=== PATIENT | male | born 1935 | race Caucasian/White ===

== ENCOUNTER 2018-10-21 09:37 | Outpatient (CLI) | payer MEDICARE | END 2018-10-21 23:59 | disposition home or self-care (01) | LOC: RAD 09:37 | PROVIDERS: ATTEND Specialist | DX: R05 Cough (principal) | CPT/HCPCS: 71045-TC ==

== ENCOUNTER 2018-11-11 08:50 | Outpatient (CLI) | payer MEDICARE | END 2018-11-11 23:59 | disposition home health service (06) | LOC: WOU 08:50 | PROVIDERS: ATTEND Specialist | DX: E11.621 Type 2 diabetes mellitus with foot ulcer (principal); L97.526 Non-pressure chronic ulcer of other part of left foot with bone involvement without evidence of necrosis; E11.69 Type 2 diabetes mellitus with other specified complication; M86.372 Chronic multifocal osteomyelitis, left ankle and foot; I10 Essential (primary) hypertension; E03.9 Hypothyroidism, unspecified; Z86.73 Personal history of transient ischemic attack (TIA), and cerebral infarction without residual deficits; Z79.01 Long term (current) use of anticoagulants | CPT/HCPCS: 11043 ==

== ENCOUNTER 2018-11-18 08:55 | Outpatient (CLI) | payer MEDICARE ==
[2018-11-19] MEDS ORDERED: FAMO40TA7 PO (10:34)
[2018-11-19] MEDS ORDERED: PREG50CA PO (10:34)
[2018-11-19] MEDS ORDERED: LEVO88TA5 PO (10:34)
[2018-11-19] MEDS ORDERED: PANT40TA4 PO (10:34)
[2018-11-19] MEDS ORDERED: FURO20TA4 PO (10:34)
[2018-11-19] MEDS ORDERED: GABA-534 PO (10:34)
[2018-11-19] MEDS ORDERED: ATOR40TA PO (10:34)
[2018-11-19] MEDS ORDERED: APIX5TAB PO (10:34)
== END 2018-11-18 23:59 | disposition home health service (06) ==
LOC: WOU 08:55
PROVIDERS: ATTEND Specialist
DX: E11.621 Type 2 diabetes mellitus with foot ulcer (principal); L97.523 Non-pressure chronic ulcer of other part of left foot with necrosis of muscle; E11.69 Type 2 diabetes mellitus with other specified complication; M86.372 Chronic multifocal osteomyelitis, left ankle and foot; I10 Essential (primary) hypertension; E03.9 Hypothyroidism, unspecified; Z86.73 Personal history of transient ischemic attack (TIA), and cerebral infarction without residual deficits; Z79.01 Long term (current) use of anticoagulants; Z79.4 Long term (current) use of insulin
CPT/HCPCS: 11042

== ENCOUNTER 2018-11-19 09:42 | Emergency (ER) | payer MEDICARE ==
[~2018-11-19] VITALS: Ht 177.8 cm; Wt 86.2 kg
--- NOTE | 2018-11-19 09:51 | NUR ---
PT BIBA RA 82 From Home Weak/Fall shoulder pain "Was brushing teeth this am [place] weak-fell and hurt R shoulder" PT IS AAOX3, NOT IN RESPIRATORY DISTRESS, HOOKED TO MONITOR, KEPT RESTED AND COMFORTABLE, WILL CONTINUE TO MONITOR.
--- NOTE | 2018-11-19 09:52 | NUR ---
AT BEDSIDE FOR EVAL.
--- NOTE | 2018-11-19 09:53 | NUR ---
IV LINE ESTABLISHED, BLOOD DRAWN AND SENT TO LAB.
[2018-11-19] MEDS ORDERED: ACETAMINOPHEN ES 500 MG TABLET PO ONE (10:00)
--- NOTE | 2018-11-19 10:06 | NUR ---
URINAL GIVEN UNABLE TO PROVIDE URINE SPECIMEN THIS TIME.
[2018-11-19] MEDS ORDERED: ACETAMINOPHEN ES 500 MG TABLET ONE (10:07)
[2018-11-19 10:15] LABS: BASOPHILS # (AUTO) 0.1 /CMM (0.0-0.2); BASOPHILS % (AUTO) 0.8 % (0.0-2.0); EOSINOPHILS % (AUTO) 0.6 % (0.0-6.0); HEMATOCRIT 38 % (39-51); HEMOGLOBIN 13.2 g/dL (13.5-17.5); LYMPHOCYTES # (AUTO) 1.6 /CMM (0.8-4.8); LYMPHOCYTES % (AUTO) 23.7 % (20.0-44.0); MEAN CORPUSCULAR HGB CONC 35 g/dl (31.0-36.0); MEAN CORPUSCULAR VOLUME 92 fL (80-96); MONOCYTES # (AUTO) 0.7 /CMM (0.1-1.30); NEUTROPHILS # (AUTO) 4.3 /CMM (1.8-8.9); NEUTROPHILS % (AUTO) 64.9 % (43.0-81.0); PLATELET COUNT (AUTO) 172 /CMM (150-450); RED BLOOD CELL COUNT(AUTO) 4.17 MIL/uL (4.5-6.0); WHITE BLOOD COUNT (AUTO) 6.6 K/uL (4.3-11.0)
[2018-11-19 10:23] LABS: CALCIUM, SERUM 8.9 mg/dL (8.5-10.1); CREATININE 1.3 mg/dL (0.6-1.3); POTASSIUM 3.9 mmol/L (3.5-5.1)
--- NOTE | 2018-11-19 10:33 | NUR ---
ASSOCIATE MEDIA PLANNER AT [facility] FOR XRAY
[2018-11-19] MEDS ORDERED: FAMO40TA7 PO (10:34)
[2018-11-19] MEDS ORDERED: FURO20TA4 PO (10:34)
[2018-11-19] MEDS ORDERED: ATOR40TA PO (10:34)
[2018-11-19] MEDS ORDERED: PREG50CA PO (10:34)
[2018-11-19] MEDS ORDERED: GABA-534 PO (10:34)
[2018-11-19] MEDS ORDERED: PANT40TA4 PO (10:34)
[2018-11-19] MEDS ORDERED: APIX5TAB PO (10:34)
[2018-11-19] MEDS ORDERED: LEVO88TA5 PO (10:34)
--- NOTE | 2018-11-19 11:04 | NUR ---
PT IS BACK FROM THE CT SCAN.
--- NOTE | 2018-11-19 11:53 | NUR ---
URINE SPECIMEN COLLECTED AND SENT TO LAB.
[2018-11-19 11:57] LABS: APPEARANCE,URINE Clear (CLEAR); BILIRUBIN,URINE Negative (NEGATIVE); BLOOD, URINE Negative Ery/uL (NEGATIVE); COLOR,URINE Yellow (YELLOW); KETONES,URINE Negative (NEGATIVE); LEUKOCYTE ESTERASE ,URINE Negative (NEGATIVE); NITRITE, URINE Negative (NEGATIVE); PH,URINE 5.5 (5.0-8.0); PROTEIN,URINE Negative (NEGATIVE); UGLUCOSE 100 MG/DL mg/dL (NEGATIVE); UROBILINOGEN,URINE 0.2 EU/dL (0.2)
--- NOTE | 2018-11-19 12:15 | NUR ---
PT DAUGHTER ASK MD AT BEDSIDE, AWARE.
[2018-11-19] MEDS ORDERED: KETOROLAC TROMETHAMINE 15 MG/ML VIAL ONE (12:57)
[2018-11-19] MEDS ORDERED: KETOROLAC TROMETHAMINE INJ 30 MG/ML VIAL IV ONE (13:00)
--- NOTE | 2018-11-19 13:20 | NUR ---
PT ABLE TO WALK WITH ASSISTANCE, MD AWARE.
[2018-11-19] MEDS ORDERED: HYDROCODONE/APAP 5/325MG 1 EACH TABLET ONE (13:23)
[2018-11-19 13:27] VITALS: BP 144/74
--- NOTE | 2018-11-19 13:27 | NUR ---
IV removed. Catheter intact and site benign. Pressure and 4x4 applied to site. No bleeding noted. Patient discharged to home in stable condition. Written and verbal after care instructions given. Patient verbalizes understanding of instruction.
[2018-11-19] MEDS ORDERED: HYDROCODONE/APAP 5/325MG 1 EACH TABLET PO ONE (13:30)
== END 2018-11-19 13:31 | disposition home or self-care (01) ==
LOC: ER 09:48
DX: S40.011A Contusion of right shoulder, initial encounter (principal); S70.01XA Contusion of right hip, initial encounter; I10 Essential (primary) hypertension; E11.9 Type 2 diabetes mellitus without complications; Z79.899 Other long term (current) drug therapy; Z86.73 Personal history of transient ischemic attack (TIA), and cerebral infarction without residual deficits; W19.XXXA Unspecified fall, initial encounter; Y93.89 Activity, other specified; Y92.89 Other specified places as the place of occurrence of the external cause; Y99.8 Other external cause status
CPT/HCPCS: 36415; 70450; 71045; 73030; 73502; 80048; 81001; 84484; 85025; 93005; 96374; 99284; J1885; 81000-TC

== ENCOUNTER 2018-11-25 09:10 | Outpatient (CLI) | payer MEDICARE ==
[~2018-11-25 09:10] MED LIST: APIX5TAB PO; ATOR40TA PO; FAMO40TA7 PO; FURO20TA4 PO; GABA-534 PO; LEVO88TA5 PO; PANT40TA4 PO; PREG50CA PO
== END 2018-11-25 23:59 | disposition home health service (06) ==
LOC: WOU 09:10
PROVIDERS: ATTEND Specialist
DX: E11.621 Type 2 diabetes mellitus with foot ulcer (principal); L97.524 Non-pressure chronic ulcer of other part of left foot with necrosis of bone; E11.69 Type 2 diabetes mellitus with other specified complication; M86.372 Chronic multifocal osteomyelitis, left ankle and foot
CPT/HCPCS: 11042; 87070-TC; 87075-TC

== ENCOUNTER 2018-12-02 08:55 | Outpatient (CLI) | payer MEDICARE | END 2018-12-02 23:59 | disposition home health service (06) | LOC: WOU 08:55 | PROVIDERS: ATTEND Specialist | DX: E11.621 Type 2 diabetes mellitus with foot ulcer (principal); L97.524 Non-pressure chronic ulcer of other part of left foot with necrosis of bone; E11.69 Type 2 diabetes mellitus with other specified complication; M86.372 Chronic multifocal osteomyelitis, left ankle and foot; E03.9 Hypothyroidism, unspecified; I10 Essential (primary) hypertension; Z86.73 Personal history of transient ischemic attack (TIA), and cerebral infarction without residual deficits; Z79.01 Long term (current) use of anticoagulants; Z79.4 Long term (current) use of insulin; Z83.3 Family history of diabetes mellitus | CPT/HCPCS: 11042; 82962-TC ==